=== PATIENT | female | born 1985 | race Caucasian/White ===

== ENCOUNTER → 2020-10-20 | Outpatient (CLI) | payer OTHER | LOC: MHCPAIN 09:57 | DX: M47.812 Spondylosis without myelopathy or radiculopathy, cervical region (principal); M54.81 Occipital neuralgia; G89.29 Other chronic pain | CPT/HCPCS: G0463 ==

== ENCOUNTER → 2020-10-26 | Outpatient (CLI) | payer OTHER | LOC: MHCPAIN 10:09 | DX: M54.81 Occipital neuralgia (principal); M54.2 Cervicalgia; M79.2 Neuralgia and neuritis, unspecified | CPT/HCPCS: J1040 ==

== ENCOUNTER → 2020-11-30 | Outpatient (CLI) | payer OTHER | LOC: MHCPAIN 10:24 | DX: M47.812 Spondylosis without myelopathy or radiculopathy, cervical region (principal); M79.18 Myalgia, other site; M54.2 Cervicalgia; M54.6 Pain in thoracic spine | CPT/HCPCS: G0463 ==

== ENCOUNTER → 2021-01-18 | Outpatient (CLI) | payer OTHER | LOC: MHCPAIN 10:00 | DX: M54.81 Occipital neuralgia (principal); M79.2 Neuralgia and neuritis, unspecified; M79.18 Myalgia, other site | CPT/HCPCS: G0463 ==

== ENCOUNTER → 2021-01-26 | Outpatient (CLI) | payer OTHER | LOC: MHCPAIN 10:04 | DX: M54.81 Occipital neuralgia (principal); M79.18 Myalgia, other site; M54.15 Radiculopathy, thoracolumbar region; M54.2 Cervicalgia | CPT/HCPCS: J1040 ==